=== PATIENT | female | born 1990 | race Caucasian/White ===

== ENCOUNTER 2017-01-14 12:05 | Emergency (ER) | payer OTHER ==
[2017-01-14] MEDS ORDERED: BUPIVACAINE HCL/PF 0.5% 30 ML VIAL ONE (12:47)
--- NOTE | 2017-01-14 13:13 | RADIOLOGY REPORT ---
HISTORY: Injury. COMPARISON: None. FINDINGS: 3 views of the right hand obtained. There is no fracture. There is no lytic or sclerotic lesion. T here is no soft tissue swelling. There is normal alignment and mineralization. IMPRESSION: No gross fracture or bone lesion. Final Electronic Signature: This report was electronically signed by Jayden Malcolm MD on 01/14/2017 1:11 PM. [email or web address] /
--- NOTE | 2017-01-14 14:53 | ER PHYSICIAN DOCUMENTATION ---
Physician Documentation [facility], [place] Name:Terese Bingham Age:26 yrs Sex:Female :1990 Arrival Date:01/14/2017 Time:12:05 BedD-2 Private MD: Nicholas Bowers Disposition: 01/15 10:32 Chart complete. tl1 Disposition: 01/14/17 14:42 Discharged to Home/Self Care. Impression: Finger Closed Fracture. - Condition is Good. - Discharge Instructions: FINGER FRACTURE Closed - FRACTURE, Finger [Closed]. - Prescriptions for Murtaugh 5- 325 mg Oral - take 1 tablet by ORAL route every 6 hours As needed; 15 tablet. - Medical Reconciliation form form. - Follow up: Private Physician; When: 4- 6 days; Reason: Recheck today's complaints, Continuance of care. - Problem is new. - Symptoms have improved. HPI: 01/14 12:11 This 26 yrs old Female presents to ER via Private Vehicle with complaints of tl1 Hand Injury. 01/15 10:25 The patient or guardian reports injury. The complaints affect the right ring finger tl1 middle phalanx. Context: The problem was sustained outdoors, resulted from fall off a horse.. Onset: The symptom(s)/episode began/occurred suddenly, just prior to arrival. She has no other complaint.. Historical: - Allergies: No known drug Allergies; - Home Meds: 1. None - PMHx: None; - PSHx: Cholecysectomy; - Tetanus: < 10 years. - Ebola Screening: : Patient negative for fever greater than or equal to 101.5 degrees Fahrenheit, and additional compatible Ebola Virus Disease symptoms. - Immunization history: Flu Vaccine < 1 year. - Social history: Smoking status: Patient states was never smoker of tobacco. ROS: 01/14 12:18 MS/extremity: Positive for injury or acute deformity. tl1 All other systems are negative. Exam: 12:18 Constitutional: This is a well developed, well nourished patient who is awake, alert, tl1 and in no acute distress. 12:18 Head/Face: Normocephalic, atraumatic. tl1 12:18 Cardiovascular: Rate: normal, Rhythm: regular. 12:18 Respiratory: Respirations: normal. 12:18 Musculoskeletal/extremity: Extremities: grossly normal except: noted in the dorsal aspect of middle phalanx of right ring finger: deformity, pain, swelling, tenderness. 12:18 Skin: Exam negative for acute changes. Vital Signs: 12:11 BP 135 / 86; Pulse 106; Resp 17; Temp 99.0(O); Pulse Ox 95% on R/A; Weight 79.38 kg; rh Height 5 ft. 6 in. (167.64 cm); Pain 7/10; 14:12 BP 133 / 80; Pulse 111; Resp 20; Pulse Ox 95% on R/A; arc 12:11 Body Mass Index 28.25 (79.38 kg, 167.64 cm) rh Procedures: 12:18 Nerve block: (digital) of palmar aspect of proximal phalanx of right ring finger tl1 Medication: Amount: 3 mls were injected, Effect: the patient's symptoms are improved, Performed by Nicholas Marino MD Patient tolerated well. Reduction: of the DIP of right ring finger, using manipulation, Immobilized with finger splint, Patient tolerated well. Splinting: Splint applied to dorsal aspect of distal phalanx of right ring finger, dorsal aspect of middle phalanx of right ring finger, dorsal aspect of proximal phalanx of right ring finger and right ring fingernail using finger splint, applied by tech. MDM: 12:18 Patient medically screened. tl1 12:18 Differential diagnosis: closed fracture. Data reviewed: vital signs, nurses notes, tl1 radiologic studies, and as a result, I will discharge patient. Test interpretation: by ED physician or midlevel provider: plain radiologic studies. Counseling: I had a detailed discussion with the patient and/or guardian regarding: the historical points, exam findings, and any diagnostic results supporting the discharge/admit diagnosis, radiology results, the need for outpatient follow up, to return to the emergency department if symptoms worsen or persist or if there are any questions or concerns that arise at home. Medication response: The patient's symptoms have improved. Response to treatment: the patient's symptoms have mildly improved after treatment, and as a result, I will discharge patient. 01/14 13:15 Order name: HAND; [address] [place] [id number]; Complete Time: 14:41 EDMS 01/15 10:34 Interpretation: Normal Except: slightly angulated (apex ulnar) non displaced fracture tl1 of the distal aspect of the middle phalanx. This was discussed with the radiologist, whose addendum is not yet on the chart. 01/14 12:08 Order name: ORTHO: Ice Pack; Complete Time: 12:08 Dispensed Medications: 12:36 Drug: Bupivacaine (0.5 %) 1 application; {Note: PER .} Route: Infiltration; Site: lc wound; 14:51 Follow up: Response: No adverse reaction Signatures: Mary Watson RN RN Nicholas Yu MD MD tl1 Lis Boudreaux Michelle Dominguez
--- NOTE | 2017-01-14 14:53 | ER NURSING DOCUMENTATION ---
Nurse's Notes [facility] Name:Terese Bingham Age:26 yrs Sex:Female :1990 Arrival Date:01/14/2017 Time:12:05 BedD-2 Private MD: Diagnosis:Finger Closed Fracture Presentation: 01/14 12:08 Presenting complaint: Patient states: Pt was riding a horse, horse got spooked and she rh fell off. Pt c/o right finger pain on the ring finger, which is deformed. Pt was not wearing a helmet, however she did not lose consciousness or c/o of any other pain. Transition of care: Other RMNP. 12:08 Acuity: ROBINSON 3 rh 12:08 Method Of Arrival: Private Vehicle Triage Assessment: 12:10 General: Appears in no apparent distress, Behavior is cooperative. Pain: Complains of rh pain in dorsal aspect of middle phalanx of right ring finger and dorsal aspect of proximal phalanx of right ring finger. Neuro: Level of Consciousness is awake, alert, obeys commands, Oriented to person, place, time, event. Cardiovascular: Capillary refill < 3 seconds. Musculoskeletal: Circulation, motion, and sensation intact Range of motion intact in all extremities. Swelling present in dorsal aspect of middle phalanx of right ring finger and dorsal aspect of proximal phalanx of right ring finger. Injury Description: Swollen and deformed ring finger on the right. Historical: - Allergies: No known drug Allergies; - Home Meds: 1. None - PMHx: None; - PSHx: Cholecysectomy; - Tetanus: < 10 years. - Ebola Screening: : Patient negative for fever greater than or equal to 101.5 degrees Fahrenheit, and additional compatible Ebola Virus Disease symptoms. - Immunization history: Flu Vaccine < 1 year. - Social history: Smoking status: Patient states was never smoker of tobacco. Screenin:12 Infectious Disease Risk None. Abuse screen: Denies threats or abuse. Denies injuries rh from another. Nutritional screening: No deficits noted. Assessment: 12:12 See Triage Assessment done by same RN. rh Vital Signs: 12:11 BP 135 / 86; Pulse 106; Resp 17; Temp 99.0(O); Pulse Ox 95% on R/A; Weight 79.38 kg; rh Height 5 ft. 6 in. (167.64 cm); Pain 7/10; 14:12 BP 133 / 80; Pulse 111; Resp 20; Pulse Ox 95% on R/A; arc 12:11 Body Mass Index 28.25 (79.38 kg, 167.64 cm) ED Course: 12:07 Patient arrived in ED. arc 12:07 Lis Boudreaux is Primary Nurse. rh 12:10 Triage completed. rh 12:10 Port Xray Completed. jhonny 12:11 Notified ED Physician of patient's arrival and chief complaint. Dr. Marino notified. rh 12:12 Valuables Remains with patient Patient has correct armband on for positive rh identification. Bed in low position. Call light in reach. Side rails up X 1. 12:12 Affected limb iced. Affected limb elevated. rh 12:18 Nicholas Marino MD is Attending Physician. tl1 14:03 Assist Provider Assist provider with reduction of right left ring finger using rh manipulation, Set up for procedure. Performed by Nicholas Marino MD Immobilized with finger splint, Patient tolerated well. Administered Medications: 12:36 Drug: Bupivacaine (0.5 %) 1 application; {Note: PER MD.} Route: Infiltration; Site: lc wound; 14:51 Follow up: Response: No adverse reaction Outcome: 14:42 Discharge ordered by . tl1 14:51 Discharged to home ambulatory, with significant other. 14:51 Condition: improved 14:51 Discharge Assessment: Patient awake, alert and oriented x 3. No cognitive and/or functional deficits noted. Patient verbalized understanding of disposition instructions. 14:51 Discharge instructions given to patient, Instructed on discharge instructions, follow up and referral plans. Demonstrated understanding of instructions, medications, Prescriptions given X 1. 14:52 Patient left the ED. Signatures: Mary Watson RN RN lc Abbott, Nicholas Wan MD MD tl1 Roland, Rosario, [facility] Lis Boudreaux
== END 2017-01-14 14:53 | disposition home or self-care (01) ==
LOC: ER 12:05
DX: S62.654A Nondisplaced fracture of middle phalanx of right ring finger, initial encounter for closed fracture (principal); V80.010A Animal-rider injured by fall from or being thrown from horse in noncollision accident, initial encounter; Y92.838 Other recreation area as the place of occurrence of the external cause; Y93.52 Activity, horseback riding
CPT/HCPCS: 64450; 99284